=== PATIENT | male | born 1975 | race Caucasian/White ===

== ENCOUNTER 2019-05-29 06:43 | Day surgery (SDC) | payer OTHER ==
[~2019-05-29 06:43] MED LIST: Lactated Ringers 1,000 ML IV SCH
--- NOTE | 2019-05-29 07:36 | PCM.PREANE ---
Preanesthetic Assessment - Anesthesia/Transfusion/Family Hx Anesthesia History: Prior Anesthesia Without Reaction Family History of Anesthesia Reaction: No Transfusion History: No Prior Transfusion(s) - Review of Systems General: No Symptoms Pulmonary: No Symptoms Cardiovascular: No Symptoms Gastrointestinal: No Symptoms Neurological: No Symptoms Other: Reports: None - Physical Assessment Vital Signs: Last Vital Signs Temp 97.2 F 05/29/19 07:08 Pulse 55 L 05/29/19 07:08 Resp 16 05/29/19 07:08 BP 122/76 05/29/19 07:08 Pulse Ox 100 05/29/19 07:08 Height: 6 ft 3 in Weight: 88.451 kg ASA Class: 2 Mental Status: Alert & Oriented x3 Airway Class: Mallampati = 2 Dentition: Reports: Normal Dentition ROM/Head Extension: Full Lungs: Clear to Auscultation, Normal Respiratory Effort Cardiovascular: Regular Rate, Regular Rhythm - Allergies Allergies/Adverse Reactions: Allergies Allergy/AdvReac Type Severity Reaction Status Date / Time banana Allergy throat Verified 05/24/19 15:37 swells chicken derived Allergy throat Verified 05/24/19 15:37 swells kiwi Allergy throat Verified 05/24/19 15:37 swells shellfish derived Allergy Swelling Verified 05/24/19 15:38 - Blood Blood Available: No - Anesthesia Plan Pre-Op Medication Ordered: None - Acknowledgements Anesthesia Type Planned: General Anesthesia Pt an Appropriate Candidate for the Planned Anesthesia: Yes Alternatives and Risks of Anesthesia Discussed w Pt/Guardian: Yes Pt/Guardian Understands and Agrees with Anesthesia Plan: Yes PreAnesthesia Questionnaire HEENT History: Reports: None Cardiovascular History: Reports: None Respiratory History: Reports: None Gastrointestinal History: Reports: None Genitourinary History: Reports: None Musculoskeletal History: Reports: Fracture Other Musculoskeletal History: hx fx nose and wrist Neurological History: Reports: None Psychiatric History: Reports: None Endocrine/Metabolic History: Reports: None Hematologic History: Reports: None Immunologic History: Reports: None Oncologic (Cancer) History: Reports: None Dermatologic History: Reports: None - Past Surgical History Head Surgeries/Procedures: Reports: None HEENT Surgical History: Reports: Other (See Below) Other HEENT Surgeries/Procedures: surgery for fx nose Cardiovascular Surgical History: Reports: None Respiratory Surgical History: Reports: None GI Surgical History: Reports: Appendectomy, EGD Male Surgical History: Reports: None Endocrine Surgical History: Reports: None Neurological Surgical History: Reports: None Musculoskeletal Surgical History: Reports: None Oncologic Surgical History: Reports: None Dermatological Surgical History: Reports: None - SUBSTANCE USE Smoking Status *Q: Never Smoker Recreational Drug Use History: No - HOME MEDS Home Medications: Home Meds Clotrimazole [Lotrimin AF 1% Top Soln] 1 applic TOP BID PRN 05/24/19 [History] - CURRENT (IN HOUSE) MEDS Current Meds: Current Medications Hydrocodone Bitart/Acetaminophen (Dilley 325-5 Mg) 1 - 2 tab PO Q4H PRN PRN Reason: Pain Cefazolin Sodium/Dextrose 2 gm (/ Premix) 50 mls @ 100 mls/hr IV ONCALL HARRIETT Lactated Ringer's (Ringers, Lactated) 1,000 mls @ 100 mls/hr IV ASDIRECTED [facility] Last Admin: 05/29/19 07:09 Dose: 100 mls/hr
[2019-05-29] MEDS ORDERED: Lidocaine 1% 20 ML MDV ONE (07:42)
[2019-05-29] MEDS ORDERED: Lidocaine 2% 5 ML SDV ONE (07:43)
[2019-05-29] MEDS ORDERED: Ondansetron 4 MG/2 ML SDV ONE (07:43)
[2019-05-29] MEDS ORDERED: fentaNYL 100 MCG/2 ML SDV ONE (07:43)
[2019-05-29] MEDS ORDERED: Midazolam 1 MG/ML 2 ML SDV ONE (07:43)
[2019-05-29] MEDS ORDERED: Ketorolac 30 MG/ML SDV ONE (07:43)
[2019-05-29] MEDS ORDERED: Ketamine 500 mg/10 ML MDV ONE (07:43)
[2019-05-29] MEDS ORDERED: Propofol 200 MG/20 ML SDV ONE (07:43)
[2019-05-29] MEDS ORDERED: ceFAZolin 2 GM in Premix Bag 1 BAG IV SCH (08:00)
[2019-05-29] MEDS ORDERED: Acetaminophen/HYDROcodone 325-5 MG Tab PO PRN (08:00)
[2019-05-29] MEDS ORDERED: ceFAZolin/Dextrose,Iso-Osmotic 2 GM/50 ML Duplex Bag IV ONE (08:11)
--- NOTE | 2019-05-29 08:54 | PCM.OPNOTE ---
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
[2019-05-29] MEDS ORDERED: Naloxone 0.4 MG/ML Syringe IVPUSH PRN (09:07)
[2019-05-29] MEDS ORDERED: Atropine 0.1 MG/ML 10 ML Syringe IVPUSH PRN ×2 (09:07)
[2019-05-29] MEDS ORDERED: fentaNYL 100 MCG/2 ML SDV IVPUSH PRN (09:07)
[2019-05-29] MEDS ORDERED: 50% Dextrose in Water 50 ML Syringe IVPUSH PRN (09:07)
[2019-05-29] MEDS ORDERED: EPINEPHrine 1:10,000 1 MG/10 ML Syringe IVPUSH PRN (09:07)
--- NOTE | 2019-05-29 09:46 | PCM.POSTAN ---
POST ANESTHESIA ASSESSMENT - MENTAL STATUS Mental Status: Alert, Oriented - VITAL SIGNS Vital Signs: Last Vital Signs Temp 97.0 F 05/29/19 08:51 Pulse 57 L 05/29/19 09:21 Resp 9 L 05/29/19 09:21 BP 123/81 05/29/19 09:21 Pulse Ox 99 05/29/19 09:21 - RESPIRATORY Respiratory Status: Respiratory Rate WNL, Airway Patent, O2 Saturation Stable - CARDIOVASCULAR CV Status: Pulse Rate WNL, Blood Pressure Stable - GASTROINTESTINAL GI Status: No Symptoms - POST OP HYDRATION Hydration Status: Adequate & Stable
--- NOTE | 2019-05-29 09:47 | PCM48HPAN ---
Post Anesthesia Note - EVALUATION WITHIN 48HRS OF ANESTHETIC Vital Signs in Normal Range: Yes Patient Participated in Evaluation: Yes Respiratory Function Stable: Yes Airway Patent: Yes Cardiovascular Function Stable: Yes Hydration Status Stable: Yes Pain Control Satisfactory: Yes Nausea and Vomiting Control Satisfactory: Yes Mental Status Recovered: Yes Vital Signs: Last Vital Signs Temp 97.0 F 05/29/19 08:51 Pulse 57 L 05/29/19 09:21 Resp 9 L 05/29/19 09:21 BP 123/81 05/29/19 09:21 Pulse Ox 99 05/29/19 09:21
[2019-05-29 10:39] VITALS: BP 126/79; PULSE 55
--- NOTE | 2019-05-29 14:34 | OR ---
SURGEON: Tiara Chiang MD DATE OF PROCEDURE: 05/29/2019 PREOPERATIVE DIAGNOSIS: Left knee pain. POSTOPERATIVE DIAGNOSIS: Osteochondral defect, left knee, medial femoral condyle and patella. PROCEDURE: Left knee arthroscopy with chondroplasty of the medial femoral condyle and patella. PRIMARY SURGEON: Tiara Chiang MD. KEYBOARDING CLERK: Joana Raphael PA-C. ANESTHESIA: General. ESTIMATED BLOOD LOSS: 5 mL. TOURNIQUET TIME: See nursing record. COMPLICATIONS: None. DVT PROPHYLAXIS: Not indicated. IMPLANTS USED: None. BRIEF HISTORY: Jimmy is a 43-year-old male who has had complaint of continued left knee pain. He had failed conservative treatment. He did have a short-term response to a cortisone injection. Due to his lack of response to conservative treatment, I did recommend surgical intervention. The risks and goals of the procedure were discussed with the patient and were documented preoperatively. He agreed to proceed. DESCRIPTION OF PROCEDURE: The patient was properly identified and brought to the operating room. He was transferred from the OR cart and placed on the operating table in supine position. General anesthesia was administered. After adequate anesthesia was obtained, a well-padded tourniquet was applied to the left lower extremity. The left lower extremity was then prepped in standard fashion using ChloraPrep solution. It was then sterilely draped. A time-out was performed to ensure correct site and procedure. Preoperative antibiotics were given. The surgical site had been marked preoperatively. An Esmarch was used to exsanguinate the left lower extremity and the tourniquet was inflated to 250 mmHg. A lateral portal arthrotomy was established. Blunt trocar and cannula were introduced into the suprapatellar pouch. Camera, inflow, and outflow were assembled. No significant synovitis was noted. The patellofemoral joint was then visualized. There appeared to be an area of cartilage damage along the lateral facet of the patella. The patella tracked centrally. The trochlear groove showed no degenerative findings. I then extended down the lateral and medial gutter. No loose bodies were identified. I then entered the medial compartment. A medial portal arthrotomy was established. Blunt probe was inserted. Meniscus was extensively probed. No tearing or instability was noted. The medial tibial plateau showed no degenerative findings. The knee was then brought into deep flexion. The medial femoral condyle was inspected and an osteochondral defect measuring approximately 15 mm x 15 mm was noted over the posterior aspect of the medial femoral condyle. Some of the overlying cartilage appeared loose with probing. A shaver was introduced and chondroplasty of the medial femoral condyle was performed. I was able to remove all the loose pieces and the defect was probed confirming stable edges. The cartilage loss was not full thickness in this area and was consistent with grade 3 chondromalacia. I then entered the notch. Both the ACL and PCL were visualized and probed and found to be intact. I then entered the lateral compartment. A deep fissure was noted along the medial aspect of the lateral tibial plateau. This was probed and no significant instability was noted. A shaver was introduced to just roughen the superficial layer without taking any cartilage away. The meniscus was extensively probed and found to be stable without tearing. The lateral femoral condyle showed no degenerative findings. I then re-entered the patellofemoral joint. A shaver was introduced and a chondroplasty of the patella was performed. There was some cartilage remaining in the osteochondral defect. The edges were stable. Instruments were then removed from the knee. The portal sites were closed with 3-0 nylon. 1% Lidocaine was injected along the portal tracts. Xeroform gauze was placed over the wound and a bulky dressing was applied. The tourniquet was then deflated. He was awakened from his anesthetic and transferred back to the operating room cart. He was brought to recovery room in stable condition. All needle and sponge counts were correct. GERARDO / MARK /[id number]
== END 2019-05-29 11:00 | disposition home or self-care (01) ==
LOC: MW.SDS 06:43
PROVIDERS: ATTEND Orthopaedic Surgery
DX: M25.562 Pain in left knee (principal); M21.962 Unspecified acquired deformity of left lower leg; M65.9 Synovitis and tenosynovitis, unspecified; Z91.018 Allergy to other foods; Z91.013 Allergy to seafood
CPT/HCPCS: 29877; 88304; J0690; J1885; J2001; J2250; J2405; J2704; J3010; J7120